=== PATIENT | male | born 1935 | race Caucasian/White ===

== ENCOUNTER 2023-12-03 20:16 | Inpatient (IN) | payer MEDICARE, BC ==
[~2023-12-03 20:16] MED LIST: Iopamidol-370 76% 500 ML MDV (1 ML CHARGE) ONE
[2023-12-03 20:46] LABS: #Basophils 0.05 10x3/uL (0.0-0.2); %Basophils 0.5 % (0.0-1.0); %Eosinophils 2.1 % (0.0-10.0); %Lymphocytes 15.8 % (21.0-51.0); %Monocytes 7.4 % (0.0-10.0); %Neutrophils 73.4 % (42.0-75.0); Hemoglobin 13.8 g/dL (14.0-18.0); Mean Corpuscular HGB CONC 32.1 g/dL (32.0-36.0); Mean Corpuscular Hemoglobin 29.2 pg (27.0-31.0); Mean Corpuscular Volume 91.1 fL (78.0-98.0); Mean Platelet Volume 11.9 fL (7.4-10.4); Platelet Count 192 10x3/uL (130-400); RBC Distribution Width 13.2 % (11.5-14.5); Red Blood Cell (RBC) Count 4.72 mill/uL (4.70-6.10)
[2023-12-03 21:11] LABS: ALT (SGPT) 16 U/L (8-55); AST (SGOT) 17 U/L (5-34); Alkaline Phosphatase 111 U/L (40-110); Anion Gap 11 mmol/L (10-20); BUN (Urea Nitrogen) 18 mg/dL (8.4-25.7); Bilirubin, Total 0.3 mg/dL (0.2-1.2); Calc. Creatinine Clearance 0 mL/min (70-130); Calcium 9.5 mg/dL (7.8-10.44); Carbon Dioxide 24 mmol/L (23-31); Chloride 102 mmol/L (98-107); Estimated GFR 59; Globulin 3.3 g/dL (2.4-3.5); Lipase 36 U/L (8-78); Potassium 4.1 mmol/L (3.5-5.1); Protein, Total 7.3 g/dL (5.8-8.1); Sodium 133 mmol/L (136-145)
[2023-12-03 21:20] LABS: Critical Call Chemistry NUR.RO@2119; Glucose 405 mg/dL (83-110)
[2023-12-03 21:53] LABS: Bacteria/HPF None Seen HPF (None Seen); Bilirubin Negative (Negative); Blood, Urine Negative (Negative); CAUTI Indications for Culture Pelvic or flank pain; Clarity Clear (Clear); Glucose, Urine (Dipstick) Greater than 1000 mg/dL (Negative); Ketone, Urine Negative (Negative); Leukocyte Negative Leu/uL (Negative); Nitrite Negative (Negative); Protein, Urine (Dipstick) Negative (Neg-Trace); RBC/HPF None Seen HPF (0-3); Squamous Epithelial None Seen HPF (0-3); Urobilinogen Normal mg/dL (Less than 2); WBC/HPF 0-3 HPF (0-3)
[2023-12-03 21:57] LABS: Urine Culture Reflex No No
[2023-12-03] MEDS ORDERED: Aspirin Chewable 81 MG TAB ONE (22:05)
[2023-12-03] MEDS ORDERED: Nitroglycerin 0.4 MG TAB (25 Tab Bottle) ONE (22:15)
[2023-12-03 22:27] LABS: Critical Call Chem Troponin I NUR.CJM1@2225
[2023-12-03] MEDS ORDERED: cefTRIAXone (ROCEPHIN) 2 GM VIAL ONE (22:48)
[2023-12-03] MEDS ORDERED: Enoxaparin 100 MG (1 mL) SYRINGE ONE (22:49)
[2023-12-03] MEDS ORDERED: Sodium Chloride 0.9% 100 ML ONE (22:49)
[2023-12-03 22:53] LABS: INR-International Normal Ratio 0.9; PTT 29.1 sec (22.9-36.1); Prothrombin Time 12.6 sec (12.0-14.7)
[2023-12-03] MEDS ORDERED: HYDROcodone/Acetaminophen 5/325 mg Tablet PO PRN (23:25)
[2023-12-03] MEDS ORDERED: Acetaminophen 325 MG TAB PO PRN (23:25)
[2023-12-03] MEDS ORDERED: Ondansetron PF 4 MG/2 ML Vial IVP PRN (23:25)
[2023-12-03] MEDS ORDERED: Ondansetron ODT 4 MG TAB PO PRN (23:25)
[2023-12-03] MEDS ORDERED: Azithromycin 500 MG VIAL ONE (23:54)
[2023-12-04] MEDS ORDERED: Glucagon 1 MG/ML KIT IM PRN (00:12)
[2023-12-04] MEDS ORDERED: HumaLOG 300 UNITS/3 ML VIAL SC PRN ×2 (00:12)
[2023-12-04] MEDS ORDERED: Dextrose 50% Abboject 50 ML SYRINGE SLOW IVP PRN (00:12)
[2023-12-04] MEDS ORDERED: Dextrose 5% in Water 1,000 ML IV PRN (00:12)
[2023-12-04 00:43] LABS: Critical Call Chem Troponin I NUR.TM8@0042; Troponin I 0.592 ng/mL (< 0.028)
[2023-12-04 02:34] LABS: #Basophils 0.04 10x3/uL (0.0-0.2); %Basophils 0.4 % (0.0-1.0); %Eosinophils 1.6 % (0.0-10.0); %Lymphocytes 24.2 % (21.0-51.0); %Monocytes 9.6 % (0.0-10.0); %Neutrophils 63.5 % (42.0-75.0); Hematocrit 37.6 % (42.0-52.0); Hemoglobin 12.2 g/dL (14.0-18.0); Mean Corpuscular HGB CONC 32.4 g/dL (32.0-36.0); Mean Corpuscular Hemoglobin 28.6 pg (27.0-31.0); Mean Corpuscular Volume 88.3 fL (78.0-98.0); Mean Platelet Volume 11.6 fL (7.4-10.4); Platelet Count 159 10x3/uL (130-400); RBC Distribution Width 13.2 % (11.5-14.5); Red Blood Cell (RBC) Count 4.26 mill/uL (4.70-6.10)
[2023-12-04 03:15] LABS: Critical Call Chem Troponin I NUR.RS8@0315; Troponin I 0.706 ng/mL (< 0.028)
[2023-12-04 03:51] LABS: ALT (SGPT) 13 U/L (8-55); AST (SGOT) 15 U/L (5-34); Albumin 3.5 g/dL (3.4-4.8); Alkaline Phosphatase 76 U/L (40-110); Anion Gap 13 mmol/L (10-20); BUN (Urea Nitrogen) 16 mg/dL (8.4-25.7); Bilirubin, Total 0.2 mg/dL (0.2-1.2); Calc. Creatinine Clearance 0 mL/min (70-130); Calcium 9.2 mg/dL (7.8-10.44); Carbon Dioxide 21 mmol/L (23-31); Chloride 109 mmol/L (98-107); Estimated GFR 81; Globulin 2.5 g/dL (2.4-3.5); Glucose 201 mg/dL (83-110); Potassium 4.2 mmol/L (3.5-5.1); Sodium 139 mmol/L (136-145)
[2023-12-04] MEDS: Nitroglycerin 2% Ointment 1 INCH/1 GM Packet TOP SCH (05:47)
[2023-12-04] MEDS: Nitroglycerin 0.4 MG TAB (25 Tab Bottle) SL PRN (05:53)
[2023-12-04 06:31] LABS: Critical Call Chem Troponin I NUR.RS8@0630; Troponin I 0.885 ng/mL (< 0.028)
[2023-12-04] MEDS ORDERED: Communication Order-Pharmacy FS SCH (08:15)
[2023-12-04] MEDS: Metoprolol Tartrate 50 MG TAB PO SCH (08:39)
[2023-12-04] MEDS: Aspirin Chewable 81 MG TAB PO SCH (08:40)
[2023-12-04] MEDS: Amlodipine 10 MG TAB PO SCH (08:40)
[2023-12-04] MEDS: Losartan 25 MG TAB PO SCH (08:41)
[2023-12-04] MEDS: Sodium Chloride 0.9% 1,000 ML IV SCH ×2 (08:42→19:30)
[2023-12-04] MEDS ORDERED: Enoxaparin 100 MG (1 mL) SYRINGE SC SCH (09:00)
[2023-12-04] MEDS ORDERED: Famotidine 20 MG TAB PO SCH (09:00)
[2023-12-04] MEDS: Doxycycline 100 MG in Sodium Chloride 0.9% 100 ML IVPB SCH (09:29)
[2023-12-04] MEDS ORDERED: Iopamidol 370 76% 100 ML VIAL ONE (12:10)
[2023-12-04] MEDS ORDERED: Verapamil 5 MG/2 ML VIAL ONE (14:09)
[2023-12-04] MEDS ORDERED: Adenosine 6 mg (2 mL) VIAL ONE (14:09)
[2023-12-04] MEDS ORDERED: Heparin 10,000 UNITS/ 10 ML VIAL ONE (14:09)
[2023-12-04] MEDS ORDERED: Nitroglycerin 50 MG/250 ML BOT 250 ML ONE (14:10)
[2023-12-04] MEDS ORDERED: Midazolam HCl 2 mg/2 ml Vial ONE (15:02)
[2023-12-04] MEDS ORDERED: fentaNYL 50 mcg/mL 1 mL Vial ONE (15:02)
[2023-12-04] MEDS ORDERED: Ondansetron PF 4 MG/2 ML Vial ONE (15:13)
[2023-12-04] MEDS ORDERED: TICAGRELOR 90 MG TABLET ONE (16:14)
[2023-12-04] MEDS ORDERED: Insulin Glargine 30 UNITS/0.3 ML VIAL SC SCH (21:00)
[2023-12-04] MEDS: TICAGRELOR 90 MG TABLET PO SCH (22:12)
[2023-12-04] MEDS: Atorvastatin Calcium 20 MG TAB PO SCH (22:12)
[2023-12-04] MEDS: cefTRIAXone\\ROCEPHIN 1 GM in Sodium Chloride 0.9% 100 ML IVPB SCH (22:12)
[2023-12-04] MEDS: Insulin Glargine 30 UNITS/0.3 ML VIAL SC SCH (22:59)
[2023-12-05 05:25] LABS: ALT (SGPT) 12 U/L (8-55); AST (SGOT) 20 U/L (5-34); Albumin 3.1 g/dL (3.4-4.8); Alkaline Phosphatase 65 U/L (40-110); Anion Gap 11 mmol/L (10-20); BUN (Urea Nitrogen) 12 mg/dL (8.4-25.7); Bilirubin, Total 0.4 mg/dL (0.2-1.2); Calc. Creatinine Clearance 81 mL/min (70-130); Calcium 8.8 mg/dL (7.8-10.44); Carbon Dioxide 22 mmol/L (23-31); Cardiac Risk 2.7 (Less than 4.5); Chloride 107 mmol/L (98-107); Cholesterol 133 mg/dl (< 200 Desired); Estimated GFR 84; Globulin 2.7 g/dL (2.4-3.5); Glucose 182 mg/dL (83-110); HDL Cholesterol 49 mg/dL (>60 Neg Risk); Potassium 4.2 mmol/L (3.5-5.1); Protein, Total 5.8 g/dL (5.8-8.1); Sodium 136 mmol/L (136-145)
[2023-12-05 05:27] LABS: #Basophils 0.05 10x3/uL (0.0-0.2); %Basophils 0.7 % (0.0-1.0); %Eosinophils 1.4 % (0.0-10.0); %Lymphocytes 18.6 % (21.0-51.0); %Neutrophils 65.6 % (42.0-75.0); Hematocrit 34.5 % (42.0-52.0); Mean Corpuscular HGB CONC 31.9 g/dL (32.0-36.0); Mean Corpuscular Hemoglobin 28.8 pg (27.0-31.0); Mean Corpuscular Volume 90.2 fL (78.0-98.0); Mean Platelet Volume 12.1 fL (7.4-10.4); Platelet Count 130 10x3/uL (130-400); RBC Distribution Width 13.4 % (11.5-14.5); Red Blood Cell (RBC) Count 3.86 mill/uL (4.70-6.10)
[2023-12-05 06:49] LABS: Triglycerides 92 mg/dL (Less than 150)
[2023-12-05 06:53] LABS: LDL Cholesterol, Calculated 66 mg/dL
[2023-12-05] MEDS: HumaLOG 300 UNITS/3 ML VIAL SC PRN (12:24)
[2023-12-05 12:29] VITALS: TEMP 97.6
[2023-12-05 15:39] VITALS: BP 130/67
== END 2023-12-05 16:00 | disposition home or self-care (01) | DRG 321 ==
LOC: ERS 20:16 → 2SW 23:27 → 2NO 12-04 01:44 → OBSVTOIN 12-04 09:40
PROVIDERS: ADMIT Internal Medicine; ATTEND Internal Medicine
PROC: 027034Z Dilation of Coronary Artery, One Artery with Drug-eluting Intraluminal Device, Percutaneous Approach (ICD-10-PCS; principal; 2023-12-04)
PROC: 4A023N7 Measurement of Cardiac Sampling and Pressure, Left Heart, Percutaneous Approach (ICD-10-PCS; 2023-12-04)
PROC: B2111ZZ Fluoroscopy of Multiple Coronary Arteries using Low Osmolar Contrast (ICD-10-PCS; 2023-12-04)
PROC: B240ZZ3 Ultrasonography of Single Coronary Artery, Intravascular (ICD-10-PCS; 2023-12-04)
DX: I21.4 Non-ST elevation (NSTEMI) myocardial infarction (principal); J18.9 Pneumonia, unspecified organism; I10 Essential (primary) hypertension; E11.9 Type 2 diabetes mellitus without complications; I25.10 Atherosclerotic heart disease of native coronary artery without angina pectoris; I48.91 Unspecified atrial fibrillation; J44.9 Chronic obstructive pulmonary disease, unspecified; Z95.0 Presence of cardiac pacemaker; Z79.4 Long term (current) use of insulin; Z87.891 Personal history of nicotine dependence; Z85.46 Personal history of malignant neoplasm of prostate
CPT/HCPCS: 36415; 36416; 71045; 71275; 74174; 76705; 80053; 80061; 81001; 83690; 83880; 84145; 84484; 85025; 85347; 85610; 85730; 87040; 87077; 87149; 92928; 92978; 93005; 93010; 93458; 93798; 96365; 96367; 96372; 99152; 99153; C1753; C1760; C1769; C1874; C1887; C9600; J0153; J0456; J0696; J1644; J1650; J1815; J2250; J2405; J3010; J3490; J7050; Q9967